=== PATIENT | male | born 1980 | race Caucasian/White ===

== ENCOUNTER 2017-06-08 13:36 | Emergency (ER) | payer SELFPAY ==
[~2017-06-08] VITALS: Ht 185.4 cm; Wt 78.0 kg
[~2017-06-08 13:36] MED LIST: ASEN5TAB SL; BACT2OIN TOP; BACT800T5 PO; CEPH500T PO; DEPA500T PO; DICL50TA3 PO
[2017-06-08 14:15] VITALS: BP 136/75; PULSE 76; RESP 17; TEMP 98.3; O2SAT 96
[2017-06-08] MEDS ORDERED: CLINDAMYCIN PHOS 300 MG/2 ML VIAL IM ONE (16:00)
[2017-06-08] MEDS ORDERED: BACT800T5 PO (16:05)
--- NOTE | 2017-06-08 16:08 | PD ---
HPI Chief Complaint: Skin Problem Time Seen by Provider: 16:00 Travel History International Travel<30 days: No Contact w/Intl Traveler<30days: No Traveled to known affect area: No History of Present Illness HPI Patient states that he woke up Friday morning with a blister on his left index finger, and that it has worsened over the last couple of days. Patient did not come in to be seen right away because he had to go to work. Patient works at [employer]. PFSH Past Medical History Bipolar Disorder: Yes (Hx per mother.) Cardiovascular Problems: No Diminished Hearing: No Gastrointestinal Disorders: No Genitourinary: No Musculoskeletal: No Neurologic: No Psychiatric: Yes Reproductive: No Respiratory: No Schizophrenia: Yes Past Surgical History Other Surgery: No Social History Alcohol Use: No Tobacco Use: Yes Substance Use: Yes (MULTIPLE) Allergies-Medications (Allergen,Severity, Reaction): Coded Allergies: codeine (Unverified Adverse Reaction, Intermediate, VOMITING, 11/06/16) Reported Meds & Prescriptions Reported Meds & Active Scripts Active Bactroban 2% Oint (22 gm) (Mupirocin) 22 Gm Oint 2 % TOP BID 10 Days APPLY TO AFFECTED AREAS Diclofenac Sodium 50 Mg Tab 50 Mg PO BID Cephalexin 500 Mg Tab 500 Mg PO Q6H Bactrim DS (Sulfamethoxazole-Trimethoprim DS) 1 Tab Tab 1 Tab PO BID Reported Saphris 5 mg (Asenapine Maleate 5 mg) 5 Mg Sub 5 Mg SL BID Depakote Delayed-Release (Divalproex Sodium) 500 Mg Tabec 1,000 Mg PO HS Review of Systems General / Constitutional: No: Fever Eyes: No: Visual changes HENT: No: Headaches Cardiovascular: No: Chest Pain or Discomfort Respiratory: No: Shortness of Breath Gastrointestinal: No: Abdominal Pain Genitourinary: No: Dysuria Musculoskeletal: No: Pain Skin: Positive Other Neurologic: No: Weakness Psychiatric: No: Depression Endocrine: No: Polydipsia Hematologic/Lymphatic: No: Easy Bruising Physical Exam Narrative GENERAL: SKIN: Warm and dry. Dorsal aspect of the left second digit has a vesicle over the PIP, also has some cellulitic changes over the PIP proximal phalanx and half of the middle phalanx, vesicle is rupture and losing some mild pustulENCE. No streaking or lymphadenopathy noted HEAD: Atraumatic. Normocephalic. EYES: Pupils equal and round. No scleral icterus. No injection or drainage. ENT: No nasal bleeding or discharge. Mucous membranes pink and moist. NECK: Trachea midline. No JVD. CARDIOVASCULAR: Regular rate and rhythm. RESPIRATORY: No accessory muscle use. Clear to auscultation. Breath sounds equal bilaterally. GASTROINTESTINAL: Abdomen soft, non-tender, nondistended. MUSCULOSKELETAL: Extremities without clubbing, cyanosis, or edema. No obvious deformities. NEUROLOGICAL: Awake and alert. No obvious cranial nerve deficits. Motor grossly within normal limits. Five out of 5 muscle strength in the arms and legs. Normal speech. PSYCHIATRIC: Appropriate mood and affect; insight and judgment normal. Data Data Last Documented VS Vital Signs Date Time Temp Pulse Resp B/P (MAP) Pulse Ox O2 Delivery O2 Flow Rate FiO2 06/08/17 14:15 98.3 76 17 136/75 (95) 96 Orders Orders Clindamycin Inj (Cleocin Inj) (06/08/17 16:00) MDM Medical Decision Making Medical Screen Exam Complete: Yes Emergency Medical Condition: Yes Medical Record Reviewed: Yes Differential Diagnosis Cellulitis versus lymphangitis versus flexor tenosynovitis Narrative Course Patient clinically has cellulitis only to the dorsum of the left second digit, there is no clinical evidence of any flexor tenosynovitis Diagnosis Primary Impression: Left second digit cellulitis Patient Instructions: Cellulitis (ED), General Instructions Scripts Sulfamethoxazole-Trimethoprim (Bactrim DS) 800-160 Mg Tab 1 TAB PO BID for Infection, #20 TAB 0 Refills Prov: Prosper Parra MD 06/08/17 Disposition: 01 DISCHARGE HOME Condition: Stable Prosper Parra MD Jun 08, 2017 16:08
== END 2017-06-08 16:51 | disposition home or self-care (01) ==
LOC: NEPD 13:36
DX: L03.012 Cellulitis of left finger (principal); Z72.0 Tobacco use
CPT/HCPCS: 96372

== ENCOUNTER 2017-06-30 03:30 | Emergency (ER) | payer SELFPAY ==
[~2017-06-30] VITALS: Ht 182.9 cm; Wt 77.0 kg
[2017-06-30 03:34] VITALS: BP 139/83; PULSE 75; RESP 18; TEMP 97.5; O2SAT 98
[2017-06-30] MEDS ORDERED: DICL75TA PO (03:54)
[2017-06-30] MEDS ORDERED: AMOX500C PO (03:54)
[2017-06-30] MEDS ORDERED: AMOXICILLIN (TRIHYDRATE) 500 MG CAP PO ONE (04:00)
[2017-06-30] MEDS ORDERED: TETANUS/DIPHTHERIA TOXOID ADULT 0.5 ML VIAL IM ONE (04:00)
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
== END 2017-06-30 06:44 | disposition home or self-care (01) ==
LOC: NEPD 03:30
DX: S01.81XA Laceration without foreign body of other part of head, initial encounter (principal); S01.511A Laceration without foreign body of lip, initial encounter; F10.129 Alcohol abuse with intoxication, unspecified; Y04.0XXA Assault by unarmed brawl or fight, initial encounter; Z23 Encounter for immunization
CPT/HCPCS: 12011; 90471; 90714